=== PATIENT | female | born 1995 | race Caucasian/White ===

== ENCOUNTER → 2017-07-05 15:58 | Outpatient (CLI) | payer OTHER, SELFPAY ==
--- NOTE | 2017-07-05 16:08 | XR_ITS ---
XR KUB CLINICAL INDICATION: ITS.REASON: ABD PAIN, CONSTIPATION ORDERING PHYSICIAN: Trisha Arreaga PATIENT AGE: 22 years COMPARISON: None FINDINGS: Nonspecific nonobstructive bowel gas pattern. Only minimal amount colonic feces noted in the ascending colon. No evidence of rectal fecal impaction. No urolithiasis or acute bony anomalies IMPRESSION: Unremarkable KUB
== END ==
PROVIDERS: PCP Family Medicine; Visit Provider Nurse Practitioner Family
DX: K59.00 Constipation, unspecified (principal); R10.84 Generalized abdominal pain
CPT/HCPCS: 74018